=== PATIENT | female | born 1995 | race American Indian/Alaskan Native ===

== ENCOUNTER 2020-01-02 11:25 | Emergency (ER) | payer OTHER ==
[2020-01-02 11:34] VITALS: BP 142/79
--- NOTE | 2020-01-02 11:47 | Emergency Department Report ---
ED General Adult HPI - General Chief complaint: Chest Pain Stated complaint: RIB PAIN Time Seen by Provider: 01/02/20 11:40 Source: patient Mode of arrival: Ambulatory Limitations: No Limitations - History of Present Illness Initial comments: 24 yo aa female comes to ER [place] being [place] pleuritic chest pain. She denies sob or cp. Her pain is anterior right sided. She has no fever or chills. She is . Gave 1 m ago; and has gotten a depo shot. Her HR 110-130 bpm. No hx PE or similar pain - Related Data Previous Rx's Medication Instructions Recorded Last Taken Type Sulfamethoxazole/Trimethoprim 1 each PO BID #10 tablet 01/02/20 Unknown Rx [Bactrim DS TAB] Allergies Allergy/AdvReac Type Severity Reaction Status Date / Time No Known Allergies Allergy Unverified 01/02/20 11:26 ED Review of Systems ROS: Stated complaint: RIB PAIN Other details as noted in HPI Comment: All other systems reviewed and negative ED Past Medical Hx - Past Medical History Previous Medical History?: No - Surgical History Past Surgical History?: Yes Additional Surgical History: WISDOM TEETH - Family History Family history: no significant - Social History Smoking Status: Never Smoker Substance Use Type: None - Medications Home Medications: Home Medications Medication Instructions Recorded Confirmed Last Taken Type Sulfamethoxazole/Trimethoprim 1 each PO BID #10 tablet 01/02/20 Unknown Rx [Bactrim DS TAB] ED Physical Exam - General Limitations: No Limitations General appearance: alert, in no apparent distress - Head Head exam: Present: atraumatic, normocephalic - Eye Eye exam: Present: normal appearance - ENT ENT exam: Present: mucous membranes moist - Neck Neck exam: Present: normal inspection - Respiratory Respiratory exam: Present: normal lung sounds bilaterally. Absent: respiratory distress - Cardiovascular Cardiovascular Exam: Present: regular rate, normal rhythm, tachycardia. Absent: systolic murmur, diastolic murmur, rubs, gallop - GI/Abdominal GI/Abdominal exam: Present: soft, normal bowel sounds - Extremities Exam Extremities exam: Present: normal inspection - Back Exam Back exam: Present: normal inspection - Neurological Exam Neurological exam: Present: alert, oriented X3 - Psychiatric Psychiatric exam: Present: normal affect, normal mood - Skin Skin exam: Present: warm, dry, intact, normal color. Absent: rash ED Course Vital Signs 01/02/20 11:32 Temperature 98.3 F Pulse Rate 130 H Respiratory 18 Rate Blood Pressure 142/79 O2 Sat by Pulse 100 Oximetry ED Medical Decision Making - Lab Data Result diagrams: 01/02/20 12:19 01/02/20 12:19 - EKG Data -: EKG Interpreted by Me Rate: tachycardia - EKG Data When compared to previous EKG there are: no significant change Interpretation: no acute changes - Radiology Data Radiology results: report reviewed, image reviewed - Medical Decision Making Labs 01/02/20 01/02/20 01/02/20 12:19 12:19 12:19 WBC 13.1 H RBC 3.88 Hgb 11.3 Hct 33.6 MCV 87 MCH 29 MCHC 34 RDW 15.5 H Plt Count 527 H Lymph % (Auto) 8.4 L Dickson % (Auto) 3.9 Eos % (Auto) 0.2 Baso % (Auto) 0.6 Lymph # 1.1 L Dickson # 0.5 Eos # 0.0 Baso # 0.1 Seg Neutrophils % 86.9 H Seg Neutrophils # 11.4 H D-Dimer 660.49 H Sodium 134 L Potassium 3.6 Chloride 96.6 L Carbon Dioxide 19 L Anion Gap 22 BUN 11 Creatinine 0.6 L Estimated GFR > 60 BUN/Creatinine Ratio 18 Glucose 89 Calcium 9.4 Total Bilirubin 0.40 AST 18 ALT 12 Alkaline Phosphatase 82 Total Protein 8.6 H Albumin 4.1 Albumin/Globulin Ratio 0.9 Lipase HCG, Qual Urine Color Urine Turbidity Urine pH Ur Specific [place] Urine Protein Urine Glucose (UA) Urine Ketones Urine Blood Urine Nitrite Urine Bilirubin Urine Urobilinogen Ur Leukocyte Esterase Urine WBC (Auto) Urine RBC (Auto) Urine Bacteria (Auto) Urine Mucus 01/02/20 01/02/20 01/02/20 12:19 12:19 Unknown WBC RBC Hgb Hct MCV MCH MCHC RDW Plt Count Lymph % (Auto) Dickson % (Auto) Eos % (Auto) Baso % (Auto) Lymph # Dickson # Eos # Baso # Seg Neutrophils % Seg Neutrophils # D-Dimer Sodium Potassium Chloride Carbon Dioxide Anion Gap BUN Creatinine Estimated GFR BUN/Creatinine Ratio Glucose Calcium Total Bilirubin AST ALT Alkaline Phosphatase Total Protein Albumin Albumin/Globulin Ratio Lipase 16 HCG, Qual Negative Urine Color Yellow Urine Turbidity Slightly-cloudy Urine pH 5.0 Ur Specific [place] 1.027 Urine Protein 30 mg/dl Urine Glucose (UA) Neg Urine Ketones 20 Urine Blood Mod Urine Nitrite Neg Urine Bilirubin Neg Urine Urobilinogen < 2.0 Ur Leukocyte Esterase Lg Urine WBC (Auto) 118.0 H Urine RBC (Auto) 91.0 Urine Bacteria (Auto) 1+ Urine Mucus 3+ Vital Signs 01/02/20 11:32 Temperature 98.3 F Pulse Rate 130 H Respiratory 18 Rate Blood Pressure 142/79 O2 Sat by Pulse 100 Oximetry labs noted ua noted- medicated ct noted pt educated on my concerns today and she will follow up with her pcp bactrum po given on dc she verbalizes understanding of plan of care HR on dc 100 bpm no cp on dc ambulatory and taking po - Differential Diagnosis ro pe/ pna/urti Critical care attestation.: If time is entered above; I have spent that time in minutes in the direct care of this critically ill patient, excluding procedure time. ED Disposition Clinical Impression: Pleuritic chest pain, UTI (urinary tract infection) Disposition: DC-01 TO HOME OR SELFCARE Is pt being admited?: No Does the pt Need Aspirin: No Condition: Stable Instructions: Pleurisy (ED) Additional Instructions: STAY WELL HYDRATED WITH WATER MOTRIN OR TYLENOL FOR PAIN OR FEVER FOLLOW UP WITH PCP REFERRAL BELOW DIET AND ACTIVITY TOLERATED YOUR DDIMER WAS ELEVATED TODAY AND YOUR HEART RATE WAS 110-130 CT ANGIO OF LUNGS WAS URINE REVEALED URINARY TRACT INFECTION Prescriptions: Sulfamethoxazole/Trimethoprim [Bactrim DS TAB] 1 each PO BID #10 tablet Referrals: KHRIS HOLBROOK MD [Staff Physician] - 3-5 Days Time of Disposition: 11:47
[2020-01-02 12:30] LABS: Bacteria,Urine 1+ /HPF (Negative); Bilirubin,Urine NEG (Negative); Blood,Urine MOD (Negative); Color,Urine Yellow (Yellow); Mucus,Urine 3+ /HPF; Urobilinogen,Urine < 2.0 mg/dL (<2.0)
[2020-01-02] MEDS ORDERED: SODIUM CHLORIDE 0.9% 1000 ML 1,000 ML IV ONE (12:37)
[2020-01-02] MEDS ORDERED: cefTRIAXone/NS 1 GM/50 ML 1 GM/50 ML BAG IV ONE (12:37)
[2020-01-02 12:51] LABS: Basophils # (Auto) 0.1 K/mm3 (0.0-0.1); Basophils % (Auto) 0.6 % (0.0-1.8); Eosinophils % (Auto) 0.2 % (0.0-4.3); Hematocrit 33.6 % (30.3-42.9); Hemoglobin 11.3 gm/dl (10.1-14.3); Lymphocytes # (Auto) 1.1 K/mm3 (1.2-5.4); Lymphocytes % (Auto) 8.4 % (13.4-35.0); Mean Corpuscular HGB Conc 34 % (30-34); Mean Corpuscular Volume 87 fl (79-97); Monocytes # (Auto) 0.5 K/mm3 (0.0-0.8); Monocytes % (Auto) 3.9 % (0.0-7.3); Platelet Count 527 K/mm3 (140-440); Red Blood Count 3.88 M/mm3 (3.65-5.03); Red Cell Distribution Width 15.5 % (13.2-15.2)
[2020-01-02 13:07] LABS: Alanine Aminotransferase 12 units/L (7-56); Albumin 4.1 g/dL (3.9-5); BUN/Creatinine Ratio 18; Blood Urea Nitrogen 11 mg/dL (7-17); Calcium 9.4 mg/dL (8.4-10.2); Hemolysis Index 3
--- NOTE | 2020-01-02 14:27 | Cat Scan Report ---
CTA CHEST WITH IV CONTRAST INDICATION: Pleuritic chest pain. TECHNIQUE: Axial CT images were obtained through the chest after injection of 100 mL Omnipaque 350 IV contrast. 3 plane MIP reconstructions were produced. All CT scans at this location are performed using CT dose reduction for ALARA by means of automated exposure control. COMPARISON: None available. FINDINGS: Pulmonary Arteries: No pulmonary emboli. Lungs: No significant abnormality. Trachea and Bronchi: No significant abnormality. Heart and Pericardium: No significant abnormality. Vasculature: No significant abnormality. Lymphatics: No lymphadenopathy. Additional Findings: None. Upper Abdomen: No acute findings. Skeletal Structures: No significant osseous abnormality. IMPRESSION: 1. No CT evidence for pulmonary embolism. 2. No acute findings. Signer Name: Hoang Brannon MD Signed: 01/02/2020 2:22 PM Workstation Name: [id number]
== END 2020-01-02 14:44 | disposition home or self-care (01) ==
LOC: ED 11:25
DX: R07.89 Other chest pain (principal); N39.0 Urinary tract infection, site not specified
CPT/HCPCS: 36415; 71275; 80053; 81001; 83690; 84703; 85025; 85379; 93005; 93010; 96365; 99284; J0696; J7030; Q9967